=== PATIENT | female | born 1995 | race Asian ===

== ENCOUNTER 2018-11-18 19:44 | Emergency (ER) | payer BC ==
[~2018-11-18] VITALS: Ht 157.5 cm; Wt 69.4 kg
[2018-11-18] MEDS ORDERED: ALPR0.5T PO (20:01)
[2018-11-18] MEDS ORDERED: ETHI1TAB16 PO (20:01)
--- NOTE | 2018-11-18 20:12 | NUR ---
DR ANG INTO EVAL PATIENT
[2018-11-18] MEDS ORDERED: TDAP DIPH,PERTUSS,TET VAC/PF 0.5 ML DISP.SYRIN IM ONE ×2 (20:15→20:20)
[2018-11-18] MEDS ORDERED: LIDOCAINE HCL 1% 20 ML VIAL TP ONE (20:15)
--- NOTE | 2018-11-18 20:41 | NUR ---
Patient discharged to home in stable conditon WITH SISTER TAKING PATIENT HOME. Written and verbal after care instructions given. Patient verbalizes understanding of instructions. WALKED OUT OF ER WITH NO DISTRESS NOTED
[2018-11-18 20:42] VITALS: BP 115/77
== END 2018-11-18 20:43 | disposition home or self-care (01) ==
LOC: ER 19:48
DX: S61.412A Laceration without foreign body of left hand, initial encounter (principal); Z79.899 Other long term (current) drug therapy; W26.8XXA Contact with other sharp object(s), not elsewhere classified, initial encounter; Y93.89 Activity, other specified; Y92.89 Other specified places as the place of occurrence of the external cause; Y99.8 Other external cause status
CPT/HCPCS: 12001; 90471; 90715; 99283; J3490; A4217; A4663